=== PATIENT | male | born 1990 | race Caucasian/White ===

== ENCOUNTER 2024-04-28 15:14 | Emergency (ER) | payer BC, SELFPAY ==
[2024-04-28 15:18] VITALS: BP 174/94; PULSE 106; TEMP 36.7; O2SAT 99; BMI 24.2
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
[2024-04-28] MEDS: BACITRACIN OINTMENT 28.4 GM TUBE 1 APPLIC TOPICAL (16:05)
[2024-04-28] MEDS: CLINDAMYCIN PHOSPHATE/D5W 600 MG/50 ML PIGGYBACK 100 MG IV (16:06)
[2024-04-28] MEDS: ADACEL DIPH,PERTUSS(ACELL),TET VAC/PF 0.5 ML ADULT SYRINGE IM (16:07)
[2024-04-28 16:38] VITALS: BP 128/93; PULSE 102; O2SAT 99
== END 2024-04-28 16:45 | disposition home or self-care (01) ==
PROVIDERS: Emergency Provider Emergency Medicine; PCP Family Medicine
DX: T24.202A Burn of second degree of unspecified site of left lower limb, except ankle and foot, initial encounter (principal); L03.116 Cellulitis of left lower limb; X19.XXXA Contact with other heat and hot substances, initial encounter; Z23 Encounter for immunization
CPT/HCPCS: 90471; 90715; 96365; 99284

== ENCOUNTER 2024-09-19 09:08 | Emergency (ER) | payer BC, SELFPAY ==
[2024-09-19 09:14] VITALS: BP 153/99; PULSE 130; TEMP 36.9; O2SAT 96; BMI 26.6
--- NOTE | 2024-09-19 09:34 | ED_ITS ---
HPI - Dental/Oral General Chief complaint: Dental/Oral Stated complaint: TOOTH PAIN Time Seen by Provider: 09/19/24 09:24 Mode of arrival: walk-in History of Present Illness HPI Narrative: The patient is coming to us with a left-sided face swelling that he noticed after he recently had some dental pain, has been trying [id number] local pain gel and also Tylenol for pain and it is effective He noted some facial swelling and he came over here for that Related Data Home Medications ?Medication ?Instructions ?Recorded ?Confirmed No Known Home Medications 09/19/24 09/19/24 Previous Rx's ?Medication ?Instructions ?Recorded clindamycin HCl 300 mg capsule 300 mg PO Q8H 7 days #21 caps 09/19/24 (Cleocin HCl) Allergies Allergy/AdvReac Type Severity Reaction Status Date / Time cefaclor (From Ceclor) Allergy Mild Verified 04/28/24 15:20 Review of Systems ROS Status of ROS 10 or more systems reviewed and unremark able except as noted in history and below PFSH PFSH Social History Little interest or pleasure in doing things: not at all Feeling down, depressed, or hopeless: not at all Exam Narrative Exam Narrative: Nurses notes and vital signs reviewed and patient is not hypoxic. The patient dental exam: It showed that the patient have very poor dental hygiene with the tooth #9 have obvious gum inflammation At the left side of the maxillary area the patient have some facial swelling as well that is very mild No airway compromise there is a multiple decayed tooth on exam General: Well-appearing and in no apparent distress. Skin: Warm, dry, no pallor noted. No rash. Head: Normocephalic, atraumatic. Neck: Supple, non-tender. Eye: Pupils are equal, round and EOMI. No scleral icterus. Ears, Nose, Mouth, and Throat: TM are clear, no nasal mucosal hypertrophy. Oral mucosa is moist, no posterior oropharynx erythema, uvula is mid-line Cardiovascular: Regular Rate and Rhythm without murmur, gallop or rub. Respiratory: No accessory muscle use or respiratory distress. Lungs are clear to auscultation, no wheezing, rales or rhonchi Chest Wall: no tenderness Back: No midline thoracic or lumbar vertebral tenderness. No CVA tenderness Musculoskeletal: normal ROM, no calf or popliteal tenderness, no lower extremity edema/swelling GI: Abdomen is soft, non-distended. Normal bowel sounds. No masses appreciated. No tenderness to palpation. No rebound, guarding, or rigidity noted. Neurological: A&O x4. No cranial nerve dysfunction observed. No truncal ataxia. Moves all extremities. Sensation intact. Psychiatric: Cooperative and interactive. Normal mood and affect. Constitutional Vital Signs, click to edit/add: Last Vital Signs Temp 98.4 F 09/19/24 09:14 Pulse 96 H 09/19/24 09:40 Resp 18 09/19/24 09:40 BP 136/88 09/19/24 09:40 Pulse Ox 98 09/19/24 09:40 Course Vital Signs Vital signs: Vital Signs Temperature 98.4 F 09/19/24 09:14 Pulse Rate 130 H 09/19/24 09:14 Respiratory Rate 18 09/19/24 09:14 Blood Pressure 153/99 H 09/19/24 09:14 Pulse Oximetry 96 09/19/24 09:14 Temperature 98.4 F 09/19/24 09:14 Pulse Rate 96 H 09/19/24 09:40 Respiratory Rate 18 09/19/24 09:40 Blood Pressure 136/88 09/19/24 09:40 Pulse Oximetry 98 09/19/24 09:40 MDM - Dental/Oral MDM Narrative Medical decision making narrative: The patient presented to us with a mild facial swelling mostly secondary dental infection he was started clindamycin as treatment for possible dental infection He was referred to the dentist with outpatient The patient is to follow up with primary care physician in next 2-3 days or to return to the emergency department should any of the signs or symptoms worsen or new symptoms develop. The patient agrees with the following Diagnosis and Treatment plan and the patient will be discharged home. Discharge Plan Discharge Chief Complaint: Dental/Oral Clinical Impression: Toothache Patient Disposition: Home, Self-Care Time of Disposition Decision: 09:33 Condition: Good Prescriptions / Home Meds: New clindamycin HCl [Cleocin HCl] 300 mg capsule 300 mg PO Q8H 7 Days Qty: 21 0RF No Action No Known Home Medications Print Language: Ecuadorean Instructions: Toothache (ED) Referrals: Yo Jiménez MD [Primary Care Provider] - 1 week Discharge Date/Time: 09/19/24 09:41
[2024-09-19 09:40] VITALS: BP 136/88; PULSE 96; O2SAT 98
--- OUTSIDE RECORDS SUMMARY | 2024-09-19 18:35 | XMS_ITS | CCD ---
Author Organization [facility] Care Team Providers Care Delinquent Notice Machine Operator Name Role Phone ADIN SMART Admitting Unavailable ADIN SMART Attending Unavailable ADIN SMART Consulting Unavailable Suki Pacheco Unavailable Allergies Allergy Classification Reported Allergen(s) Allergy Type Date of Onset Reaction(s) Facility (1 source) Cefaclor Drug Allergy [facility] Repository (1 source) Cefaclor Drug Allergy Doesn't know [facility] Other Problems Active Problems Problem Classification Problem Date Documented Da te Episodic/Chronic Fever of unknown origin (1 source) Fever, unspecified; Translations: [FEVER UNSPECIFIED] Onset: 12-17-2019 Episodic Influenza (1 source) Influenza due to unidentified influenza virus with other respiratory manifestations; Translations: [FLU D/T UNIDENT FLU VIR RESP MANIF] Onset: 12-17-2019 Episodic Other lower respiratory disease (3 sources) Cough; Translations: [COUGH] Onset: 12-15-2019 Episodic Other upper respiratory infections (2 sources) Acute pharyngitis, unspecified; Translations: [Acute upper respiratory infection, unspecified] Episodic Substance-related disorders (1 source) Nicotine dependence, cigarettes, uncomplicated; Translations: [NICOTINE DEPEND CIGARETTES UNCOMP] Onset: 12-17-2019 Chronic Viral infection (1 source) Viral infection, unspecified; Translations: [VIRAL INFECTION UNSPECIFIED] Onset: 12-17-2019 Episodic Past or Other Problems Problem Classification Problem Date Documented Da te Episodic/Chronic Unclassified (1 source) Contact with and (suspected) exposure to covid-19 Z20.822 Results Test Name Value Interpretation Reference Range Facil ity Quick Fluon 09-24-2022 FLUAV Ab CF (S) [Titer] Negative [facility] Other FLUBV Ab CF (S) [Titer] Negative [facility] Other Quick Strepon 09-24-2022 S. pyogenes Org specific cx Ql (Throat) Negative [facility] Other Quick Strep [facility] Other SARS-CoV-2 (COVID-19) RNA NA A+probe Ql (Resp)on 09-24-2022 SARS-CoV-2 (COVID-19) RNA CECI+probe Ql (Unsp spec) Negative [facility] Other Consenton 04-27-2020 Consent [id number] Normal [facility] CULTURE THROATon 12-15-2019 CULTURE THROAT Culture Observations: Normal respiratory fermín. Normal [facility] Comment on above: Performed By: #### S SCRN, THRTCX #### [facility] [address] [place] [address] Gamaliel Nelly INFLUENZA A AND B AGon 12-15 INFLUANEGH SEE BELOW Normal [facility] Comment on above: Result Comment: Nega tive for Flu A protein angiten. Infection due to Flu A cannot be ruled out. Flu A angiten in the sample may be below the detection limit of the test. Performed By: #### I NFLUAB #### [facility] [address] [place] [address] Gamaliel Nelly INFLUENZA A AG Negative Normal NEGATIVE SEE COMMENT [facility] Comment on above: Performed By: #### I NFLUAB #### [facility] [address] [place] [address] Gamaliel Nelly INFLUENZA B AG Positive Normal NEGATIVE SEE COMMENT [facility] Comment on above: Performed By: #### I NFLUAB #### [facility] [address] [place] [address] Gamaliel Nelly INFLUPOSHB SEE BELOW Normal [facility] Comment on above: Result Comment: NOTE : Live attenuated influenzae vaccine viruses can cause a positive result for a rapid influenza diagnostic test if administered up to 7 days prior to rapid testing. Performed By: #### I NFLUAB #### [facility] [address], [place] [address] Gamaliel Villegas INTERNAL CONTROLS Within Normal Limits Normal Within Normal Limits [facility] Comment on above: Performed By: #### I NFLUAB #### [facility] [address], [place] [address] Gamaliel Villegas STREPT SCREENon 12-15-2019 STREP SCREEN A Negative Normal NEGATIVE [facility] Comment on above: Performed By: #### S SCRN, THRTCX #### [facility] [address], [place] [address] Gamaliel Villegas Vital Signs Date Time Vital Sign Value Performing Clinician Facility 09-24-2022 10:05-0500 Body height 170.18 cm Suki Pacheco Other [facility] Other 09-24-2022 10:05-0500 Body mass index (BMI) [Ratio] 23.49 kg/m2 Suki Pacheco Other [facility] Other 09-24-2022 10:05-0500 Body temperature 100.1 [degF] Suki Pacheco Other [facility] Other 09-24-2022 10:05-0500 Body weight 68.04 kg Suki Pacheco Other [facility] Other 09-24-2022 10:05-0500 Respiratory rate 18 /min Suki Pacheco Other [facility] Other 09-24-2022 10:05-0500 SaO2% (BldA) [Mass fraction] 98 % Suki Pacheco Other [facility] Other Encounters Encounter Date Encounter Type Care Provider Facility Start: 09-24-2022 End: 09-24-2022 ambulatory Suki Pacheco Other [facility] Other Start: 09-24-2022 Office outpatient ne w 30 minutes Suki Pacheco [facility] Start: 12-15-2019 End: 12-15-2019 Patient encounter procedure ADIN SMART Facility:[facility]1 Payers Date Payer Category Payer Unknown [id number] 1957 Self-pay [id number] [facility] [id number] Social History Date Type Detail Facility Sex Assigned At [facility] Other Evaluation note 09-24-2022 Note Date & Type Note Facility 09-24-2022 Evaluation note Encounter Date Diagnosis Assessment Notes Sep, Sore throat (ICD-10 - J02.9) Sep, Viral URI (ICD-10 - J06.9) Advised patient that COVID PCR test, rapid Strep test, and rapid Influenza A/B test was negative today. Advised patient that will treat as viral URI. Supportive care as directed, increase fluids and rest, Tylenol/Motrin as directed, OTC cough/cold remedies as directed on packaging, cool mist humidifier, throat lozenges. Discussed infection control practices such as good hand washing and mask wearing. Patient to follow up with PCP if symptoms persist or worsen despite treatment. Immediate eval for SOB, difficulty, chest pain, fevers that do not break with antipyretic or any other concerning symptoms as reviewed on patient education handout. Patient verbalizes understanding and is agreeable to treatment plan. Patient left in stable condition Sep, Contact with and (suspected) exposure to covid-19 (ICD-10 - Z20.822) [facility] Other Summary Purpose Family History No Family History Records FoundNo Family History Records Found Advance Directives No Advanced Directives Records FoundNo Advanced Directives Records Found Additional Source Comments (unrecognized sect ion and content) No Status Records FoundNo Status Records Found INFORMATION SOURCE (unrecogn ized section and content) DATE CREATED AUTHOR 12/17/2019 [facility] DATE CREATED AUTHOR AUTHOR'S MATILDE VÁZQUEZ 04/28/2020 [facility] REASON FOR VISIT (unrecogniz ed section and content) GREEN RANGER, FEVER, B/A FOR RECORDS PERTAINING TO PATIENTS WHO ARE OR HAVE BEEN ENROLLED IN A CHEMICAL DEPENDENCY/SUBSTANCEABUSE PROGRAM, SOME INFORMATION MAY BE OMITTED. This clinical summary was aggregated from multiple sources. Caution should be exercised in using it in the provision of clinical care. This summary normalizes information from multiple sources, and as a consequence, information in this document may materially change the coding, format and clinical context of patient data. In addition, data may be omitted in some cases. CLINICAL DECISIONS SHOULD BE BASED ON THE PRIMARY CLINICAL RECORDS. [facility] [employer] [facility]. provides no warranty or guarantee of the accuracy or completeness of information in this document.
== END 2024-09-19 09:41 | disposition home or self-care (01) ==
PROVIDERS: Emergency Provider Emergency Medicine; PCP Family Medicine
DX: K08.89 Other specified disorders of teeth and supporting structures (principal)
CPT/HCPCS: 99283